=== PATIENT | female | born 1985 | race Caucasian/White ===

== ENCOUNTER 2016-12-15 12:40 | Outpatient (CLI) ==
[2015-12-07 09:01] VITALS: BMI 31.2
[2016-12-15 12:56] LABS: BASOPHILS % (AUTO) 0.2 % (0.0-3.0); EOSINOPHILS # (AUTO) 0.4 K/ul (0.0-0.7); EOSINOPHILS % (AUTO) 4.3 % (0.0-7.0); HEMATOCRIT 37.6 % (37.0-47.0); HEMOGLOBIN 12.7 g/dl (12.0-16.0); IMMATURE GRANULOCYTE % (AUTO) 0.3 % (0.0-5.0); LYMPHOCYTES # (AUTO) 2.2 K/uL (0.60-3.4); LYMPHOCYTES % (AUTO) 23.8 (10.0-50.0); MEAN CORPUSCULAR HGB CONC 33.8 (31.8-35.4); MEAN CORPUSCULAR VOLUME 82.8 fl (81.0-99.0); MONOCYTES # (AUTO) 0.4 K/uL (0.4-2.0); MONOCYTES % (AUTO) 4.9 (0-10); NEUTROPHILS % (AUTO) 66.5; PLATELET COUNT 297 10^3/uL (140-440); RED BLOOD COUNT 4.54 10^6/ul (4.20-5.40); WHITE BLOOD COUNT 9.05 K/ul (4.6-10.2)
[2016-12-15 13:20] LABS: ALBUMIN 3.7 g/dL (3.4-5.0); ALBUMIN/GLOBULIN RATIO 1.03; ANION GAP 12.9; BILIRUBIN,TOTAL 0.17 mg/dL (0.00-1.20); BUN/CREATININE RATIO 20.77; CALCIUM 9.6 mg/dL (8.2-10.2); CREATININE 0.77 mg/dL (0.60-1.30); POTASSIUM 3.9 mmol/L (3.5-5.10); TOTAL PROTEIN 7.3 g/dL (6.4-8.2)
--- NOTE | 2016-12-15 13:29 | CT ---
Examination: Noncontrast CT images of the abdomen pelvis with axial, sagittal, and coronal reformat s. Comparison: 07/01/2015. Reason for study: Abdominal pain. FINDINGS: Within the partially imaged lung bases. There are no pneumothoraces, pleural effusions, or focal consolidations. The heart is not enlarged. 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 Image evaluation is limited by the lack of intravenous contrast. The gallbladder is been removed. The liver, spleen, adrenal glands, and pancreas are grossly unrema rkable. There is no hydronephrosis or hydroureter. There is a small nonobstructive 2 mm left renal calculus. No focal dilatation of the small bowel. The entirety of the small bowel is filled with f luid. The appendix is unremarkable. The pelvic structures are unremarkable. There is no pelvic free flui d or intra-abdominal free air. There is a tiny only fat containing periumbilical hernia. No osteob lastic or osteolytic lesions. Impression: 1. Imaging findings suggest enteritis. 2. Nephrolithiasis.
== END 2016-12-15 12:41 | disposition home or self-care (01) ==
LOC: RAD 12:40
PROVIDERS: ATTEND Nurse Practitioner Family
DX: R10.9 Unspecified abdominal pain (principal); R10.816 Epigastric abdominal tenderness
CPT/HCPCS: 36415; 80053; 82150; 83690; 85025

== ENCOUNTER 2017-03-11 08:29 | Outpatient (CLI) ==
[2015-12-07 09:01] VITALS: BMI 31.2
[2017-03-11 08:42] LABS: BASOPHILS % (AUTO) 0.1 % (0.0-3.0); EOSINOPHILS # (AUTO) 0.3 K/ul (0.0-0.7); EOSINOPHILS % (AUTO) 2.9 % (0.0-7.0); HEMATOCRIT 38.6 % (37.0-47.0); HEMOGLOBIN 12.9 g/dl (12.0-16.0); IMMATURE GRANULOCYTE % (AUTO) 0.2 % (0.0-5.0); LYMPHOCYTES # (AUTO) 2.6 K/uL (0.60-3.4); LYMPHOCYTES % (AUTO) 26.2 (10.0-50.0); MEAN CORPUSCULAR HEMOGLOBIN 27.6 pg (27.0-31.0); MEAN CORPUSCULAR HGB CONC 33.4 (31.8-35.4); MEAN CORPUSCULAR VOLUME 82.5 fl (81.0-99.0); MONOCYTES # (AUTO) 0.5 K/uL (0.4-2.0); MONOCYTES % (AUTO) 4.6 (0-10); NEUTROPHILS # (AUTO) 6.5 K/ul (2.0-6.9); PLATELET COUNT 290 10^3/uL (140-440); RED BLOOD COUNT 4.68 10^6/ul (4.20-5.40)
[2017-03-11 09:27] LABS: ALBUMIN 3.8 g/dL (3.4-5.0); ALBUMIN/GLOBULIN RATIO 1.27; ANION GAP 14.1; BILIRUBIN,TOTAL 0.25 mg/dL (0.00-1.20); BUN/CREATININE RATIO 20.77; CALCIUM 9.1 mg/dL (8.2-10.2); CHOL/HDL RATIO 4.7 (4.5-5.5); CREATININE 0.77 mg/dL (0.60-1.30); POTASSIUM 4.1 mmol/L (3.5-5.10); TOTAL PROTEIN 6.8 g/dL (6.4-8.2)
== END 2017-03-11 08:30 | disposition home or self-care (01) ==
LOC: LAB 08:29
PROVIDERS: ATTEND Nurse Practitioner Family
DX: E75.6 Lipid storage disorder, unspecified (principal); D64.9 Anemia, unspecified
CPT/HCPCS: 36415; 80053; 80061; 84439; 84443; 85025

== ENCOUNTER 2017-03-31 11:49 | Outpatient (CLI) ==
[2015-12-07 09:01] VITALS: BMI 31.2
== END 2017-03-31 11:50 | disposition home or self-care (01) ==
LOC: LAB 11:49
PROVIDERS: ATTEND Nurse Practitioner Family
DX: J03.90 Acute tonsillitis, unspecified (principal)
CPT/HCPCS: 87880

== ENCOUNTER 2017-07-01 12:50 | Outpatient (CLI) ==
[2015-12-07 09:01] VITALS: BMI 31.2
[2017-07-01 13:11] LABS: BASOPHILS % (AUTO) 0.1 % (0.0-3.0); EOSINOPHILS # (AUTO) 0.3 K/ul (0.0-0.7); EOSINOPHILS % (AUTO) 3.3 % (0.0-7.0); HEMOGLOBIN 12.6 g/dl (12.0-16.0); IMMATURE GRANULOCYTE % (AUTO) 0.2 % (0.0-5.0); LYMPHOCYTES # (AUTO) 2.4 K/uL (0.60-3.4); LYMPHOCYTES % (AUTO) 25.2 (10.0-50.0); MEAN CORPUSCULAR HEMOGLOBIN 27.9 pg (27.0-31.0); MEAN CORPUSCULAR HGB CONC 33.2 (31.8-35.4); MEAN CORPUSCULAR VOLUME 84.1 fl (81.0-99.0); MONOCYTES # (AUTO) 0.4 K/uL (0.4-2.0); MONOCYTES % (AUTO) 4.6 (0-10); NEUTROPHILS # (AUTO) 6.3 K/ul (2.0-6.9); NEUTROPHILS % (AUTO) 66.6; PLATELET COUNT 308 10^3/uL (140-440); RED BLOOD COUNT 4.52 10^6/ul (4.20-5.40); WHITE BLOOD COUNT 9.39 K/ul (4.6-10.2)
[2017-07-01 13:52] LABS: ALBUMIN 3.8 g/dL (3.4-5.0); ALBUMIN/GLOBULIN RATIO 1.19; ANION GAP 14.9; BILIRUBIN,TOTAL 0.34 mg/dL (0.00-1.20); CALCIUM 9.5 mg/dL (8.2-10.2); CHOL/HDL RATIO 4.8 (4.5-5.5); CREATININE 0.7 mg/dL (0.60-1.30); POTASSIUM 3.9 mmol/L (3.5-5.10)
== END 2017-07-01 12:51 | disposition home or self-care (01) ==
LOC: LAB 12:50
PROVIDERS: ATTEND Nurse Practitioner Family
DX: Z00.00 Encounter for general adult medical examination without abnormal findings (principal)
CPT/HCPCS: 36415; 80053; 80061; 84443; 85025

== ENCOUNTER 2017-09-22 13:02 | Outpatient (CLI) ==
[2015-12-07 09:01] VITALS: BMI 31.2
[2017-09-22 13:10] LABS: BASOPHILS % (AUTO) 0.2 % (0.0-3.0); EOSINOPHILS # (AUTO) 0.4 K/ul (0.0-0.7); EOSINOPHILS % (AUTO) 3.4 % (0.0-7.0); HEMATOCRIT 36.1 % (37.0-47.0); HEMOGLOBIN 12.2 g/dl (12.0-16.0); IMMATURE GRANULOCYTE % (AUTO) 0.3 % (0.0-5.0); LYMPHOCYTES # (AUTO) 3.8 K/uL (0.60-3.4); LYMPHOCYTES % (AUTO) 33.5 (10.0-50.0); MEAN CORPUSCULAR HGB CONC 33.8 (31.8-35.4); MEAN CORPUSCULAR VOLUME 82.8 fl (81.0-99.0); MONOCYTES # (AUTO) 0.5 K/uL (0.4-2.0); MONOCYTES % (AUTO) 4.4 (0-10); NEUTROPHILS # (AUTO) 6.6 K/ul (2.0-6.9); NEUTROPHILS % (AUTO) 58.2; PLATELET COUNT 328 10^3/uL (140-440); RED BLOOD COUNT 4.36 10^6/ul (4.20-5.40); WHITE BLOOD COUNT 11.38 K/ul (4.6-10.2)
[2017-09-22 13:27] LABS: ALBUMIN 3.7 g/dL (3.4-5.0); ALBUMIN/GLOBULIN RATIO 1.12; ANION GAP 17.6; BILIRUBIN,TOTAL 0.22 mg/dL (0.00-1.20); BUN/CREATININE RATIO 21.91; CALCIUM 9.3 mg/dL (8.2-10.2); CHOL/HDL RATIO 3.2 (4.5-5.5); CREATININE 0.73 mg/dL (0.60-1.30); POTASSIUM 3.6 mmol/L (3.5-5.10)
== END 2017-09-22 13:03 | disposition home or self-care (01) ==
LOC: LAB 13:02
PROVIDERS: ATTEND Nurse Practitioner Family
DX: D64.9 Anemia, unspecified (principal); E78.1 Pure hyperglyceridemia
CPT/HCPCS: 36415; 80053; 80061; 85025

== ENCOUNTER 2017-10-05 09:37 | Outpatient (CLI) ==
[2015-12-07 09:01] VITALS: BMI 31.2
[2017-10-05 10:07] LABS: H. PYLORI ANTIBODY POSITIVE (NEGATIVE); H.PYLORI INTERNAL QC INTERNAL QC VALID
--- NOTE | 2017-10-05 10:14 | DI ---
EXAM: KUB supine and upright HISTORY: Generalized abdominal pain. FINDINGS: Supine exam reveals mild gaseous distension of a few loops of colon and small bowel. Upri ght study demonstrates minimal scattered air-fluid levels in the same regions. No excessive fecal re tention. There are surgical clips superimposed over the right upper quadrant suggesting a post cholec ystectomy state. No organomegaly or suspicious calcification. Bones within normal limits. IMPRESSION: Nonspecific bowel gas pattern which could represent mild ileus. Consider follow-up abdominal imaging if indicated clinically.
--- NOTE | 2017-10-05 13:07 | CT ---
EXAM: CT Abdomen without contrast. CT Pelvis without contrast. HISTORY: Ileus. Mid abdominal pain for 1 month, worsening. COMPARISON: 12/15/2016, 07/01/2015. TECHNIQUE: Multiple axial images of the abdomen and pelvis were obtained without intravenous contras t. Images were reformatted in the coronal plane. FINDINGS: Please note that evaluation of the abdominal and pelvic structures is limited due to lack of intravenous contrast. The lung bases are clear. Osseous structures are unremarkable. Gallbladder is absent. The liver, pancreas, spleen, adrenal glands are unremarkable. A 0.2 cm nonob structing left renal calculus present. No hydronephrosis identified. The bowel is normal in course and caliber without evidence for obstruction or inflammatory process. The appendix is normal. Uterus demonstrates normal contour. Urinary bladder is unremarkable. No fr ee fluid or free air detected. Tiny fat-containing umbilical hernia is present IMPRESSION: 1. No acute abnormality within the abdomen or pelvis. 2. Left nephrolithiasis.
== END 2017-10-05 09:38 | disposition home or self-care (01) ==
LOC: RAD 09:37
PROVIDERS: ATTEND Nurse Practitioner Family
DX: K56.7 Ileus, unspecified (principal); R11.2 Nausea with vomiting, unspecified; R10.84 Generalized abdominal pain; R19.7 Diarrhea, unspecified
CPT/HCPCS: 36415; 86677

== ENCOUNTER 2018-04-04 10:47 | Outpatient (CLI) ==
[2015-12-07 09:01] VITALS: BMI 31.2
== END 2018-04-04 10:48 | disposition home or self-care (01) ==
LOC: RHC-LAB 10:47
PROVIDERS: ATTEND Nurse Practitioner Family
DX: D64.9 Anemia, unspecified (principal); E78.1 Pure hyperglyceridemia
CPT/HCPCS: 36415; 80053; 80061; 85025

== ENCOUNTER 2018-04-12 22:52 | Emergency (ER) ==
[2018-04-12 23:02] VITALS: BP 150/90; TEMP 98; BMI 30.2
[2018-04-12] MEDS ORDERED: TETRACAINE 0.5% UNIT-DOSE OP STA (23:12)
[2018-04-12] MEDS ORDERED: EYE-STREAM OP STA (23:12)
[2018-04-12] MEDS ORDERED: FLUORETS OP STA (23:12)
[2018-04-12] MEDS ORDERED: BLEPHAMIDE EYE OINTMENT OP SCH (23:45)
--- NOTE | 2018-04-12 23:45 | ED.PDOC ---
General ED Provider: Dr. MAGDALENE MONTAGUE-ER Chief Complaint: Eye Problem Stated Complaint: i got something in my eye watching fireworks Time Seen by Physician: 22:55 Mode of Arrival: Walk-In Information Source: Patient, Family Exam Limitations: No limitations Primary Care Provider: TIERA BRIONES Nursing and Triage Documentation Reviewed and Agree: Yes Does patient meet sepsis criteria?: No System Inflammatory Response Syndrome: Not Applicable Sepsis Protocol: For patient's 13 years and over: Temp is 96.8 and below OR 101 and greater Pulse >90 BPM Resp >20/minute Acutely Altered Mental Status Are patient's symptoms suggestive of a new infection, such as: -Pneumonia -Skin, Soft Tissue -Endocarditis -UTI -Bone, Joint Infection -Implantable Device -Acute Abdominal Infection -Wound Infection -Meningitis -Blood Stream Catheter Infection -Unknown EENT Complaint Exam - Eye Complaint/Exam Onset/Duration: one hour Symptoms Are: Still present Timing: Constant Initial Severity: Mild Current Severity: Mild Location: Discreet, Left Character: Reports: Dull, Foreign body sensation Aggravating: Reports: Blinking Alleviating: Reports: None Associated Signs and Symptoms: Reports: Clear drainage. Denies: Photophobia Related History: Reports: Foreign body Eye Surgical History: Reports: None Penetrating Injury Risk Factors: None Globe Rupture Risk Factors: None Acute Glaucoma Risk Factors: None Optic Artery Occlusion Risk Factors: None Visual Acuity Right Eye: 40/40 Visual Acuity Left Eye: 50 Visual Field: Normal Extraocular Movement: Normal Orbit Findings: Normal Globe Findings: Intact Lid Findings: Normal Conjunctival Findings: Red Corneal Findings: Clear Fluorescein Uptake: No Fundi: Normal Slit Lamp Used: No Differential Diagnoses: Conjunctivitis, Corneal Abrasion, Foreign Body Review of Systems - Review Of Systems Constitutional: Reports: No symptoms Eyes: Reports: Foreign body sensation, Inflammation, Pain, Glasses Ears, Nose, Mouth, Throat: Reports: No symptoms Respiratory: Reports: No symptoms Cardiac: Reports: No symptoms GI: Reports: No symptoms : Reports: No symptoms Musculoskeletal: Reports: No symptoms Skin: Reports: No symptoms Neurological: Reports: No symptoms Endocrine: Reports: No symptoms Hematologic/Lymphatic: Reports: No symptoms All Other Systems: Reviewed and Negative Past Medical History - Past Medical History Previously Healthy: No Endocrine: Reports: Dyslipidemia Cardiovascular: Reports: None Respiratory: Reports: None Hematological: Reports: None Gastrointestinal: Reports: None Genitourinary: Reports: None Neuro/Psych: Reports: None Musculoskeletal: Reports: None Cancer: Reports: None Last Menstrual Period: 04/12 - Surgical History General Surgical History: Reports: Tubal ligation, Cholecystectomy - Family History Family History: Reports: Unknown - Social History Smoking Status: Current every day smoker Hx Substance Use: No Alcohol Screening: None - Immunizations Tetanus Shot up to Date: No Physical Exam - Physical Exam Appearance: Well-appearing, No pain distress, Well-nourished Eyes: BEATRIZ, EOMI, Conjunctiva inflammed ENT: Ears normal, Nose normal, Oropharynx normal Neck: Supple Respiratory: Airway patent, Breath sounds clear, Breath sounds equal, Respirations nonlabored Cardiovascular: RRR, Pulses normal, No rub, No murmur GI/: Soft, Nontender, No masses, Bowel sounds normal, No Organomegaly Musculoskeletal: Normal strength, ROM intact, No edema, No calf tenderness Skin: Warm, Dry, Normal color Neurological: Sensation intact, Motor intact, Reflexes intact, Cranial nerves intact, Alert, Oriented Psychiatric: Affect appropriate, Mood appropriate Procedures - Eye Procedure Location of Foreign Body: left upper lid Tetracaine Drops Administered: Yes Eye FB Removal: Removed with cotton swab Depth: Superficial Foreign Body Completely Removed: Yes Eye Irrigated: Yes Re-Evaluation - Re-Evaluation Time of Re-Evaluation: 23:46 Status: Improved Vital Signs Stable: Yes Pain Level: 1 Appearance: NAD Lungs: Clear Skin: Warm and Dry Neuro: Alert and Oriented X3 CV: RRR Critical Care Note - Critical Care Note Total Time (mins): 0 Course - Course Orders, Labs, Meds: Orders Category Date Time Status Balanced Salt Solution [Eye-Stream] MEDS 04/12/18 23:12 Discontinued 1 bottle OP ONCE STA Fluorescein Sodium [Fluorets] MEDS 04/12/18 23:12 Discontinued 1 strip OP ONCE STA Sulfacetm Na/Prednisol AC [Blephamide Eye Ointment] MEDS 04/12/18 23:45 Ordered 1 applic OP QID Tetracaine HCl/Pf [Tetracaine 0.5% Unit-Dose] MEDS 04/12/18 23:12 Discontinued 2 drop OP ONCE STA Medications Discontinued Medications Generic Name Dose Route Start Last Admin Trade Name Freq PRN Reason Stop Dose Admin Eye Irrigation Solution 1 bottle 04/12/18 23:12 04/12/18 23:31 Eye-Stream OP 04/12/18 23:13 1 bottle ONCE STA Administration Fluorescein Sodium 1 strip 04/12/18 23:12 04/12/18 23:31 Fluorets OP 04/12/18 23:13 1 strip ONCE STA Administration Tetracaine HCl 2 drop 04/12/18 23:12 04/12/18 23:30 Tetracaine 0.5% Unit-Dose OP 04/12/18 23:13 2 drop ONCE STA Administration Vital Signs: Temp Pulse Resp BP Pulse Ox 04/12/18 22:55 98 F 88 16 150/90 H 98 Departure - Departure Time of Disposition: 23:46 Disposition: HOME SELF-CARE Discharge Problem: Foreign body, eye Qualifiers: Encounter type: initial encounter Laterality: left Qualified Code(s): T15.92XA - Foreign body on external eye, part unspecified, left eye, initial encounter Instructions: Eye Foreign Body (ED) Condition: Good Pt referred to PMD for follow-up: Yes IPMP verified?: No Additional Instructions: keep eye patched---may reapply ointment in am--it is very important to get the eye rchecked tomorrow by her eye doctor(dr mckeon) call in am for appt Allergies/Adverse Reactions: Allergies No Known Allergies Allergy (Unverified 07/01/17 09:00) Home Medications: Ambulatory Orders Norgestrel-Ethinyl Estradiol [Fuk-Enlubhoj-16 Tablet] 1 tab PO DAILY 12/07/15 Multivit with Calcium,Iron,Min [Women's Daily Multivitamin] 1 each PO d Amitriptyline HCl 25 mg PO BID 08/30/16 Disposition Discussed With: Patient, Family
== END 2018-04-12 23:55 | disposition home or self-care (01) ==
LOC: ED 22:52
DX: T15.92XA Foreign body on external eye, part unspecified, left eye, initial encounter (principal); F17.210 Nicotine dependence, cigarettes, uncomplicated
CPT/HCPCS: 99282

== ENCOUNTER 2018-10-23 08:36 | Outpatient (CLI) | END 2018-10-23 08:37 | disposition home or self-care (01) | LOC: RHC-LAB 08:36 | PROVIDERS: ATTEND Nurse Practitioner Family | DX: D64.9 Anemia, unspecified (principal); E78.1 Pure hyperglyceridemia | CPT/HCPCS: 36415; 80053; 80061; 84443; 85025 ==

== ENCOUNTER 2018-11-01 14:54 | Outpatient (CLI) | END 2018-11-01 14:55 | disposition home or self-care (01) | LOC: RHC-LAB 14:54 | PROVIDERS: ATTEND Nurse Practitioner Family | DX: R73.9 Hyperglycemia, unspecified (principal) | CPT/HCPCS: 36415; 83037 ==

== ENCOUNTER 2018-11-27 08:01 | Outpatient (CLI) | END 2018-11-27 08:02 | disposition home or self-care (01) | LOC: RHC-LAB 08:01 | PROVIDERS: ATTEND Nurse Practitioner Family | DX: E11.9 Type 2 diabetes mellitus without complications (principal); E78.1 Pure hyperglyceridemia | CPT/HCPCS: 36415; 80061; 84443 ==

== ENCOUNTER 2018-11-29 09:04 | Outpatient (CLI) | END 2018-11-29 09:05 | disposition home or self-care (01) | LOC: CAR 09:04 | PROVIDERS: ATTEND Nurse Practitioner Family | DX: R00.0 Tachycardia, unspecified (principal); Z82.49 Family history of ischemic heart disease and other diseases of the circulatory system | CPT/HCPCS: 93005; 93010 ==

== ENCOUNTER 2019-01-22 09:09 | Outpatient (CLI) | END 2019-01-22 09:10 | disposition home or self-care (01) | LOC: RHC-LAB 09:09 | PROVIDERS: ATTEND Nurse Practitioner Family | DX: E11.9 Type 2 diabetes mellitus without complications (principal); E78.1 Pure hyperglyceridemia; R79.89 Other specified abnormal findings of blood chemistry | CPT/HCPCS: 36415; 80053; 80061; 83036 ==

== ENCOUNTER 2019-06-06 07:31 | Outpatient (CLI) | END 2019-06-06 07:32 | disposition home or self-care (01) | LOC: LAB 07:31 | PROVIDERS: ATTEND Nurse Practitioner Family | DX: R79.89 Other specified abnormal findings of blood chemistry (principal); E11.9 Type 2 diabetes mellitus without complications; I10 Essential (primary) hypertension; F43.9 Reaction to severe stress, unspecified; F41.9 Anxiety disorder, unspecified; D64.9 Anemia, unspecified; E78.1 Pure hyperglyceridemia | CPT/HCPCS: 36415; 80053; 80061; 83036; 84443; 85025 ==